=== PATIENT | female | born 1965 | race Caucasian/White ===

== ENCOUNTER → 2024-07-01 13:48 | Outpatient (REF) | payer OTHER, SELFPAY | LOC: HWWDC 13:48 | PROVIDERS: ATTENDING PHYSICIAN Physician Assistant | DX: Z12.31 Encounter for screening mammogram for malignant neoplasm of breast (principal); M85.80 Other specified disorders of bone density and structure, unspecified site | CPT/HCPCS: 77063; 77067; 77080 ==

== ENCOUNTER → 2025-04-13 11:00 | Outpatient (REF) | payer OTHER, SELFPAY ==
[2025-04-13 12:09] LABS: Hematocrit 39.9 % (37.0-47.0); Hemoglobin 13.9 g/dL (12.0-16.0); Mean Corp Hgb Conc. 34.8 g/dL (33.0-37.0); Mean Corpuscular Volume 93.7 fL (81.0-99.0); Nucleated Red Blood Cells % 0 %; Platelet Count 268 10^3/uL (130-400); Red Cell Dist. Width 13.3 % (11.5-14.5)
== END ==
LOC: RAD 11:00
PROVIDERS: ATTENDING PHYSICIAN Family Medicine
DX: N93.9 Abnormal uterine and vaginal bleeding, unspecified (principal)
CPT/HCPCS: 36415; 76830; 76856; 85025

== ENCOUNTER 2025-04-14 06:14 | Day surgery (SDC) | payer OTHER, SELFPAY ==
[2025-04-14] VITALS (7 sets, daily range): BP systolic 120–168; BP diastolic 74–116
[2025-04-14] MEDS: TYLENOL 1000 MG PO (07:13)
[2025-04-14] MEDS: NORMOSOL-R/PLASMALYTE-A 1000 IV (07:13)
--- NOTE | 2025-04-14 07:19 | W.SUR.PREOP ---
Pre-Operative Surgical Note
-
I have examined this patient prior to the performance of the scheduled procedure.
The patient's condition is unchanged from the time of the current History and
Physical and the patient is able to undergo the scheduled procedure.
--- NOTE | 2025-04-14 07:19 | HP.FOC2 ---
Focused History & Physical
Chief Complaint
HPI:
Chief Complaint: Umbilical Hernia
HPI / Indication for Planned Procedure: 60F with a symptomatic Umbilical Hernia. Will plan for an open repair
Relevant Past Medical History: Negative
Relevant Social History: Negative
Relevant Family History: Negative
Relevant Past Surgical History: Negative
Review of Systems
Review of Pertinent Systems: All Systems Negative
Medication
See Medication form for detailed medications: Yes
Medication List (including Herbals & OTC):
Co Q-10 1 dose PO DAILY 04/08/25
Vitamin C 1 dose PO DAILY 04/08/25
Vitamin D3 1 dose PO DAILY 04/08/25
cyanocobalamin (vitamin B-12) 1 dose PO DAILY 04/08/25
estradiol 1 dose PO DAILY 04/08/25
guar gum 1 tbsp PO DAILY 04/08/25
losartan 100 mg tablet 100 mg PO DAILY 04/08/25
progesterone micronized 100 mg capsule 100 mg PO QPM 04/08/25
vitamin K2 1 dose PO DAILY 04/08/25
Medications Reviewed: Yes
Allergies and Reactions
Patient has Allergies: No
Noted Allergies and Reactions:
Allergy/AdvReac Type Severity Reaction Status Date / Time
No Known Allergies Allergy Verified 04/14/25 06:56
Pertinent Physical Exam
All Other Systems: Negative
Head/Neck: Normal
Diagnosis / Assessment
60F with a symptomatic Umbilical Hernia.
Plan / Procedure
Will plan for an open repair
Anesthesia/Sedation to be done by Anesthesia Provider: Yes
--- NOTE | 2025-04-14 09:06 | W.IMMPOSTOP ---
Surgical Immed Post Op Note
-
Primary Surgeon: Yovanny Hernandez MD
Assisting Surgeon: None
Pre-op Diagnosis: Umbilical
Post-op Diagnosis: Same
Procedure Performed: Open primary umbilical hernia repair
Anesthesia Type: General
Specimen / Cultures: None
Estimated Blood Loss: 1 cc
Complications: [None]
Operative Findings: 1 cm umbilical hernia closed transversely with 2 [id number]-[id number]-zmoyv 0 Surgilon sutures.
--- NOTE | 2025-04-14 09:06 | OR.RPT ---
Operative Report
Operative Report
Patient Name: Itzel Davila
: 1965
Date of Operation: 04/14/2025
Preoperative Diagnosis: Umbilical hernia
Postoperative Diagnosis: Same
Procedure(s):
Open primary umbilical hernia repair
Surgeon(s):
Dr. Hernandez
Tunnel Elastic Operator Lockstitch(s):
MICKI Rivera
Anesthesia: General
Estimated Blood Loss: 1 cc
Urine Output: None
Drains/Lines/Implants: None
Specimens: None
Indication for surgery:
The patient has a symptomatic umbilical hernia. After review of their therapeutic options, they elected to pursue open repair.
Operative Findings: 1 cm umbilical hernia containing incarcerated preperitoneal fat closed transversely with 2 [id number]-yx-[id number] 0 Surgilon sutures.
Details of the operation:
After successful induction of anesthesia, the patient was prepped and draped in the supine position. A team timeout was performed confirming administration of DVT prophylaxis, IV antibiotics and SCDs. The skin was anesthetized with 0.25% Marcaine
and an infraumbilical incision was made and dissection carried down to the fascia. The hernia sac was then encircled and carefully dissected off of the umbilical stalk and debulked using 3-0 Vicryl ties before the stalk was returned to the
abdomen. The defect measured 1 cm. The defect was then closed in the transverse direction using two 0 Surgilon sutures. The umbilical stalk was then tacked down to the fascia with a 3-0 Vicryl suture. The dermis was then approximated with
interrupted 3-0 Vicryl sutures followed by Dermabond. Once the glue had dried, we placed a folded up piece of gauze into the umbilicus and covered it with a large Tegaderm dressing and then suctioned out the gauze to create a vacuum dressing to
help obliterate the space. The patient returned to the Recovery Room in stable condition. Sponge and instrument counts were correct. No specimens sent to Pathology.
I was the attending physician and performed the procedure with assistance of the PA above. The assistance of MICKI Rivera was required due to the complexity of the procedure. During the procedure Angie assisted with retraction, resection, and
closure of the wound. I was present for all portions of the case.
Yovanny Hernandez MD
== END 2025-04-14 09:45 | disposition home or self-care (01) ==
LOC: SDS 06:14
PROVIDERS: ATTENDING PHYSICIAN Surgery
DX: K42.9 Umbilical hernia without obstruction or gangrene (principal)
CPT/HCPCS: 49592

== ENCOUNTER 2025-09-08 06:25 | Day surgery (SDC) | payer OTHER, SELFPAY | END 2025-09-08 10:45 | disposition home or self-care (01) | LOC: GI 06:25 | PROVIDERS: ATTENDING PHYSICIAN Internal Medicine | DX: D12.4 Benign neoplasm of descending colon (principal); K63.89 Other specified diseases of intestine; K57.30 Diverticulosis of large intestine without perforation or abscess without bleeding; K64.9 Unspecified hemorrhoids; Z83.719 Family history of colon polyps, unspecified | CPT/HCPCS: 45380; 88305 ==